=== PATIENT | female | born 1965 | race Caucasian/White ===

== ENCOUNTER 2024-12-27 18:23 | Outpatient (CLI) | payer OTHER, SELFPAY | END 2024-12-27 18:24 | disposition home or self-care (01) | LOC: AMB 01-02 09:07 | PROVIDERS: Visit Provider Emergency Medicine | DX: S09.90XA Unspecified injury of head, initial encounter (principal); S09.93XA Unspecified injury of face, initial encounter; F10.129 Alcohol abuse with intoxication, unspecified; W10.8XXA Fall (on) (from) other stairs and steps, initial encounter; Y92.59 Other trade areas as the place of occurrence of the external cause | CPT/HCPCS: A0425; A0427 ==

== ENCOUNTER 2024-12-27 19:00 | Emergency (ER) | payer SELFPAY ==
[2024-12-27] VITALS (11 sets, daily range): BP systolic 112–137; BP diastolic 74–91; PULSE 83–88; RESP 12–31; TEMP 36.8; O2SAT 90–95; BMI 21.5
--- NOTE | 2024-12-27 19:05 | CRLHL7_ITS ---
For Patients: As a result of the Century Cures Act, medical imaging exams and procedure reports are released immediately into your electronic medical record. You may view this report before your referring provider. If you have questions, please contact your health care provider. INDICATION: Fell down stairs, closed head injury. COMPARISON: None. TECHNIQUE: CT of the head without IV contrast. Coronal and sagittal reconstructions. FINDINGS: Brain: No intracranial hemorrhage, abnormal extra-axial fluid collection, or evidence of acute infarct. No mass effect or midline shift. Normal caliber ventricular system. Skull base and calvarium: Scattered paranasal sinus mucosal thickening. Large polyp or mucous retention cyst in the left maxillary sinus. The mastoid air cells are clear. The visualized orbits are grossly unremarkable. No acute fracture identified. Soft tissues: Minimal soft tissue swelling in the anterior frontal scalp. IMPRESSION: 1. No acute intracranial findings. 2. Minimal soft tissue swelling in the anterior frontal scalp. Please note that all CT scans at this facility use dose modulation, iterative reconstruction, and/or weight-based dosing when appropriate to reduce radiation dose to as low as reasonably achievable. Dictated by Mona Menon MD @ 12/27/2024 8:09:15 PM (Electronically Signed)
--- NOTE | 2024-12-27 19:05 | CRLHL7_ITS ---
For Patients: As a result of the Century Cures Act, medical imaging exams and procedure reports are released immediately into your electronic medical record. You may view this report before your referring provider. If you have questions, please contact your health care provider. INDICATION: Fell down stairs, closed head injury, neck pain. COMPARISON: None. TECHNIQUE: CT of the cervical spine without IV contrast. Coronal and sagittal reconstructions. FINDINGS: Vertebrae: Exam limited by motion artifact. No acute fracture or suspicious bone lesion. Minimal retrolisthesis of C4 on C5 and C5 on C6. Discs and facet joints: Multilevel endplate spurring and facet arthropathy. Moderate disc space narrowing at C4-C5 and C5-C6. Moderate spinal canal stenosis at C4-C5. Extraspinal findings: Visualized intracranial contents and paravertebral soft tissues are unremarkable. Biapical pleural scarring and emphysematous change. IMPRESSION: 1. No acute fracture or traumatic malalignment of the cervical spine. 2. Multilevel degenerative spondylosis. Please note that all CT scans at this facility use dose modulation, iterative reconstruction, and/or weight-based dosing when appropriate to reduce radiation dose to as low as reasonably achievable. Dictated by Mona Menon MD @ 12/27/2024 8:16:06 PM (Electronically Signed)
[2024-12-27 19:16] LABS: Hematocrit 42.5 % (33.0-51.0); Hemoglobin* 13.8 gm/dL (12.0-16.0); Immature Granulocytes Abs Auto 0.02 K/uL (0.00-0.30); Immature Granulocytes Pct Auto 0.2 %; Mean Corpuscular HGB Conc 33 gm/dL (32-36); Mean Corpuscular Hemoglobin 29 pg (26-34); Mean Corpuscular Volume 88 fL (80-100); RDW Coefficient of Variation % 13.6 % (11.5-15.5); Red Blood Count 4.85 m/uL (4.00-5.20); White Blood Count* 10.76 K/uL (4.50-11.00)
[2024-12-27 19:17] LABS: Lymphocytes Absolute Auto 5.50 K/uL (0.90-2.90); Slide Review Reflex No
[2024-12-27 19:26] LABS: Chloride* 97 mmol/L (96-114)
[2024-12-27 19:27] LABS: Albumin* 4.2 g/dL (3.3-5.0); Potassium* 4.3 mmol/L (3.6-5.1); Sodium* 134 mmol/L (135-149)
--- NOTE | 2024-12-27 19:28 | ED.GENADULT ---
HPI - General Adult General Chief complaint: Fall/Minor Trauma Stated complaint: Fall Time Seen by Provider: 12/27/24 19:05 History of Present Illness HPI narrative: Patient reports falling down one step at her apartment. Does report ETOH use and ccollar placed as precaution. TTA was called as patient believes she may have had LOC. 59-year-old woman presenting to the emergency department via EMS. TTA. She is alert and talking as she arrives. Describes tripping going up the stairs and striking her head as she fell forward. It sounds that there may have been a loss of consciousness. Notes that there was a lot of blood. Admits to drinking alcohol. Admits to 4 beers. Says she was leaving where she was drinking because she had enough. She is not really complaining of head pain but when asked about neck pain says it always hurts. No new shortness of breath or chest pain. No abdominal pain. Chronic back pain as well. No extremity injury. Does not take anticoagulation. Related Data Home Medications ?Medication ?Instructions ?Recorded ?Confirmed No Known Home Medications 12/27/24 12/27/24 Allergies Allergy/AdvReac Type Severity Reaction Status Date / Time No Known Drug Allergies Allergy Verified 12/27/24 19:26 Review of Systems Status of ROS: Reports: 6 or more systems reviewed and unremarkable except as noted in History and below [facility] Social History Smoking Status: Current every day smoker How often do you have a drink containing alcohol: 4 or more times a week How many standard drinks containing alcohol do you have on a typical day: 5 or 6 How often do you have six or more drinks on one occasion: Weekly AUDIT-C Alcohol total score: 9 Non-prescribed substance use: denies use Exam Narrative: Exam Narrative: Vitals are noted. Iwona is very vocal. Appears intoxicated. Breathing easily with open airway. Head is wrapped with gauze. Light blood is noted oozing under some layers. There is some dried blood on both hands. No corresponding injury over the hands. GCS of 15. Pupils are 3-4 mm and briskly reactive. They are equal. She is moving all extremities without apparent difficulty. Head as noted is wrapped with gauze. Removing of this cause does reveal a 1-1/2 inch laceration full dermal vertical in the mid forehead. Bleeds easily when manipulated. I do not feel a defect/step-off/crepitus to palpation about the head. Oropharynx without indication of injury. Edentulous. Neck is diffusely tender over the posterior neck. Chest is without tenderness to palpation. No clavicular pain. No pain to palpation about the shoulders or the arms. Lungs clear with equal breath sounds. Abdomen is soft and nontender. No pain to palpation about the hips a. Light abrasion? on the right knee. No notable pain to palpation about the legs. No lower extremity edema. Well-perfused. She is sore to palpation about the low back; midline and generally. It sounds as though this is likely chronic; a little worse perhaps. No deformity appreciated. Const: Documenting provider has reviewed patient's vital signs: yes Course Vital Signs Vital signs: Initial Vital Signs Temperature 98.3 F 12/27/24 19:10 Temperature Source Temporal Artery Scan 12/27/24 19:10 Pulse Rate 88 12/27/24 19:10 Respiratory Rate 20 12/27/24 19:10 Blood Pressure 137/90 H 12/27/24 19:10 Blood Pressure Mean 105 12/27/24 19:10 Pulse Oximetry 94 12/27/24 19:10 Oxygen Delivery Method Room Air 12/27/24 19:10 Vital Signs Temperature 98.3 F 12/27/24 19:10 Pulse Rate 88 12/27/24 19:10 Respiratory Rate 20 12/27/24 19:10 Blood Pressure 137/90 H 12/27/24 19:10 Pulse Oximetry 94 12/27/24 19:10 Oxygen Delivery Method Room Air 12/27/24 19:10 Temperature 98.3 F 12/27/24 19:10 Pulse Rate 84 12/27/24 19:52 Respiratory Rate 12 12/27/24 20:15 Blood Pressure 112/74 12/27/24 19:52 Pulse Oximetry 91 12/27/24 19:52 Oxygen Delivery Method Room Air 12/27/24 19:10 Medications Administered Medications: Discontinued Medications Generic Name Dose Route Start Last Admin Trade Name Freq PRN Reason Stop Dose Admin Sodium Chloride 500 mls @ 500 mls/hr 12/27/24 19:05 12/27/24 20:06 0.9 % Sodium Chloride 500 Ml IV 12/27/24 20:04 Infused .Q1H ONE Infusion Medical Decision Making MDM Narrative Medical decision making narrative: Placed in C-collar during initial assessment due to pain and apparent intoxication. And directed to CT for head and neck imaging. IV had been placed. She was given L normal saline. Apparently has been sometime since she has been seen in primary care. Will check some labs as well. Baseline hemoglobin considering bleeding that was described. Alcohol level. Head CT independently reviewed by me looks to be without acute intracranial injury/bleed. She does have little soft tissue swelling anteriorly on the scalp. Increased agitated during time in the emergency department. Wanting to go. Waiting on CT read by Radiology of cervical spine in particular. This was noted to be without acute changes. Radiology over-read below INDICATION: Fell down stairs, closed head injury, neck pain. COMPARISON: None. TECHNIQUE: CT of the cervical spine without IV contrast. Coronal and sagittal reconstructions. FINDINGS: Vertebrae: Exam limited by motion artifact. No acute fracture or suspicious bone lesion. Minimal retrolisthesis of C4 on C5 and C5 on C6. Discs and facet joints: Multilevel endplate spurring and facet arthropathy. Moderate disc space narrowing at C4-C5 and C5-C6. Moderate spinal canal stenosis at C4-C5. Extraspinal findings: Visualized intracranial contents and paravertebral soft tissues are unremarkable. Biapical pleural scarring and emphysematous change. IMPRESSION: 1. No acute fracture or traumatic malalignment of the cervical spine. 2. Multilevel degenerative spondylosis. Please note that all CT scans at this facility use dose modulation, iterative reconstruction, and/or weight-based dosing when appropriate to reduce radiation dose to as low as reasonably achievable. Dictated by Mona Menon MD @ 12/27/2024 8:16:06 PM Did have to persuade her that she would need some repair of her scalp as well. She did agree to have her laceration repaired. Settled temporarily following removal of C-collar. Labs are actually quite good. Alcohol level though of 0.36. Injected forehead with 2% lidocaine. 2-1/2 mL injected. She did move about challenging the injection. Excellent anesthesia was achieved. Cleansed further with Shur-Clens type solution. Assisted by nursing to calm and hold still. Sutured with interrupted 5 0 Ethilon. Wound was very well approximated with control of bleeding. Antibiotic ointment and Band-Aid was placed. Has been easily ambulatory. Again demanding to leave. Also apologetic for being a pain she says. See patient discharge plan for further discussion It was a pleasure to care for you. sutures out in 7 - 8 days. antibiotic ointment for 4 days and then to a dry dressing. ok to get wet but try not to soak while sutures are in. Watch for spreading redness after 2 days accompanied by heat, swelling, marked increase in pain, purulent drainage. for further scar reduction/wound healing if desired -- after the scab falls off, can apply daily vitamin e oil or something like maderma or silicone-containing ointments or bandaids daily. especially protect from sun exposure for the first 9 - 12 months. Please take care around your drinking of alcohol. Lab Data Lab results reviewed: Yes I reviewed the patient's lab results Labs: Lab Results 12/27/24 Range/Units 19:09 WBC 10.76 (4.50-11.00) K/uL RBC 4.85 (4.00-5.20) m/uL Hgb 13.8 (12.0-16.0) gm/dL Hct 42.5 (33.0-51.0) % MCV 88 (80-100) fL MCH 29 (26-34) pg MCHC 33 (32-36) gm/dL RDW Coeff of Zander 13.6 (11.5-15.5) % Plt Count 280 (140-440) K/uL Neut % (Auto) 40.5 L (42.0-72.0) % Lymph % (Auto) 50.7 H (20-44) % [place] % (Auto) 6.8 (0.0-11.0) % Eos % (Auto) 1.3 (0.0-7.0) % Baso % (Auto) 0.5 (0.0-3.0) % Neut # (Auto) 4.40 (1.7-7.0) K/uL Lymph # (Auto) 5.50 H (0.90-2.90) K/uL [place] # (Auto) 0.70 (0.00-0.90) K/UL Eos # (Auto) 0.14 (0.00-0.50) K/uL Baso # (Auto) 0.05 (0.00-0.30) K/uL Abs Immat Gran (auto) 0.02 (0.00-0.30) K/uL Imm/Tot Granulo (auto) 0.2 % Sodium 134 L (135-149) mmol/L Potassium 4.3 (3.6-5.1) mmol/L Chloride 97 (96-114) mmol/L Carbon Dioxide 31 (20-32) mmol/L Anion Gap 6 L (7-15) mEq/L BUN 13 (7-30) mg/dL Creatinine 0.7 (0.5-1.5) mg/dL Estimated GFR 98 ml/min Glucose 101 (60-115) mg/dL Calcium 7.9 L (8.4-10.6) mg/dL Total Bilirubin 0.2 (0.1-1.5) mg/dL Direct Bilirubin 0.2 (0.0-0.5) mg/dL AST 34 (12-35) U/L ALT 15 (4-35) U/L Alkaline Phosphatase 88 (40-150) U/L Total Protein 7.0 (6.0-8.3) g/dL Albumin 4.2 (3.3-5.0) g/dL Ethyl Alcohol 0.36 H* (0.01-0.03) % Critical Care Time Critical Care Time Critical Care Time: Yes Attestation: The patient required my highest level preparedness to intervene emergently and I personally spent this critical care time directly and personally managing the patient. This critical care time included: Obtaining a history; Examining the patient; Pulse oximetry; Ordering and reviewing of studies; Arranging urgent treatment with development of a management plan; Evaluation of patients response to treatment; Frequent reassessment discussions with other providers. This critical care time was performed to assess and manage the high probability of imminent life-threatening deterioration that could result in multiorgan failure. It was exclusive of separate billable procedures and treating other patients and teaching time. Total Critical Care Time in Minutes: 45 Discharge Plan Discharge Clinical Impression: Closed head injury, Forehead laceration, Alcohol intoxication Patient Disposition: Home w/ Parent or Adult Condition: Improved Additional Instructions: It was a pleasure to care for you. sutures out in 7 - 8 days. antibiotic ointment for 4 days and then to a dry dressing. ok to get wet but try not to soak while sutures are in. Watch for spreading redness after 2 days accompanied by heat, swelling, marked increase in pain, purulent drainage. for further scar reduction/wound healing if desired -- after the scab falls off, can apply daily vitamin e oil or something like maderma or silicone-containing ointments or bandaids daily. especially protect from sun exposure for the first 9 - 12 months. Please take care around your drinking of alcohol. Prescriptions: No Action No Known Home Medications Follow Up/Referrals: Provider,Not a Local [Primary Care Provider, Family Practice] Stand Alone Forms: [employer] Info Instructions
[2024-12-27 19:30] LABS: Alanine Aminotransferase* 15 U/L (4-35); Alkaline Phosphatase* 88 U/L (40-150); Anion Gap 6 mEq/L (7-15); Aspartate Amino Transferase* 34 U/L (12-35); Bilirubin Direct* 0.2 mg/dL (0.0-0.5); Bilirubin Total* 0.2 mg/dL (0.1-1.5); Blood Urea Nitrogen* 13 mg/dL (7-30); Calcium* 7.9 mg/dL (8.4-10.6); Carbon Dioxide* 31 mmol/L (20-32); Creatinine* 0.7 mg/dL (0.5-1.5); Estimated Glomerular Filt Rate 98 ml/min; Glucose* 101 mg/dL (60-115); Total Protein* 7.0 g/dL (6.0-8.3)
[2024-12-27] MEDS: 0.9 % SODIUM CHLORIDE 500 ML 500 ML IV (19:36)
[2024-12-27 19:41] LABS: Ethanol* 0.36 % (0.01-0.03)
--- NOTE | 2024-12-27 19:43 | ED.NURSE ---
call from lab critical etoh, care nurse and updated
== END 2024-12-27 20:56 | disposition home or self-care (01) ==
PROVIDERS: Emergency Provider Family Medicine
DX: S09.90XA Unspecified injury of head, initial encounter (principal); S01.81XA Laceration without foreign body of other part of head, initial encounter; F10.129 Alcohol abuse with intoxication, unspecified; F17.210 Nicotine dependence, cigarettes, uncomplicated; W10.9XXA Fall (on) (from) unspecified stairs and steps, initial encounter; Y92.039 Unspecified place in apartment as the place of occurrence of the external cause
CPT/HCPCS: 12011; 36415; 70450; 72125; 80048; 80076; 82077; 85025; 94761; 99284; 99291; G0390; J7030